=== PATIENT | male | born 1955 | race Caucasian/White ===

== ENCOUNTER 2017-06-15 19:42 | Emergency (ER) | payer MEDICARE, MEDICAID ==
[~2017-06-15] VITALS: Ht 5787.1 cm; Wt 65.9 kg
[2017-06-15] MEDS ORDERED: normal saline 1000ML IV soln IV ONE (20:25)
[2017-06-15] MEDS ORDERED: azithromycin 250mg tablet PO ONE (20:30)
[2017-06-15] MEDS ORDERED: albuterol 2.5 MG/3 ML nebule CONTNEB PRN ×2 (20:30→20:55)
[2017-06-15] MEDS ORDERED: CefTRIAXone/D5W-Rocephin 1gm 50 ML IV ONE (20:30)
[2017-06-15] MEDS ORDERED: methylPREDNISolone sod succ 125mg/2ml vial IV ONE (20:30)
[2017-06-15 21:08] LABS: BASOPHILS % (AUTO) 0.1 % (0-1); EOSINOPHILS # (AUTO) 0.3 X10'3 (0-0.9); EOSINOPHILS % (AUTO) 3.4 % (0-6); HEMATOCRIT 40.2 % (42.0-52.0); LYMPHOCYTES # (AUTO) 1.5 X10'3 (1.1-4.8); LYMPHOCYTES % (AUTO) 18.2 % (21-51); MEAN CORPUSCULAR HEMOGLOBIN 32.8 PG (27.0-31.0); MEAN CORPUSCULAR HGB CONC 34.8 % (33.0-36.5); MEAN CORPUSCULAR VOLUME 94.2 FL (78-98); MEAN PLATELET VOLUME 7.2 FL (7.4-10.4); MONOCYTES # (AUTO) 0.8 X10'3 (0-0.9); MONOCYTES % (AUTO) 9.5 % (2-12); NEUTROPHILS # (AUTO) 5.6 X10'3 (1.8-7.7); NEUTROPHILS % (AUTO) 68.8 % (42-75); PLATELET COUNT 284 X10'3 (140-440); RED BLOOD COUNT 4.27 X10'6 (4.70-6.10); RED CELL DISTRIBUTION WIDTH 13.7 % (11.5-14.5); WHITE BLOOD COUNT 8.2 X10'3 (4.5-11.0)
[2017-06-15 21:18] LABS: PARTIAL THROMBOPLASTIN TIME 29 SECONDS (22-32); PROTHROMBIN TIME 10.5 SECONDS (9.0-12.0)
[2017-06-15 21:24] LABS: ALANINE AMINOTRANSFERASE 15 U/L (12-78); ALBUMIN 3.3 G/DL (3.4-5.0); ALBUMIN/GLOBULIN RATIO 0.9 (1.1-1.5); ALKALINE PHOSPHATASE 72 IU/L (46-116); ANION GAP 11 (8-16); ASPARTATE AMINO TRANSFERASE 16 U/L (10-37); BILIRUBIN,TOTAL 1.2 MG/DL (0.1-1.0); BLOOD UREA NITROGEN 9 MG/DL (7-18); CALCIUM 8.7 MG/DL (8.5-10.1); CHLORIDE 105 MMOL/L (99-107); GLUCOSE 87 MG/DL (70-104); MAGNESIUM 1.9 MG/DL (1.5-2.4); SODIUM 141 MMOL/L (135-145); TOTAL CARBON DIOXIDE 25.5 MMOL/L (24-32); TOTAL PROTEIN 6.9 G/DL (6.4-8.2); eGFR 76 ML/MIN
[2017-06-15 21:35] VITALS: BP 119/71
[2017-06-15] MEDS ORDERED: triamcinolone acetonide 40mg/ml inj IM ONE (22:05)
[2017-06-15] MEDS ORDERED: AZIT200S47 PO (22:09)
[2017-06-15] MEDS ORDERED: PRED20TA PO (22:09)
[2017-06-15] MEDS ORDERED: ALBU8.5H8 INH (22:09)
[2017-06-15] MEDS ORDERED: FLUT1DIS7 INH (22:09)
[2017-06-15] MEDS ORDERED: GUAI120L55 PO (22:09)
[2017-06-15] MEDS ORDERED: AZIT-63 PO (22:11)
== END 2017-06-15 22:26 | disposition home or self-care (01) ==
LOC: ER 19:43
DX: J45.901 Unspecified asthma with (acute) exacerbation (principal); Z79.899 Other long term (current) drug therapy
CPT/HCPCS: 36415; 71045; 80053; 83605; 83735; 84145; 85025; 85610; 85730; 87040; 93005; 94644; 94760; 96365; 96372; 96375; 99285; J0696; J2930; J3301; J7030; 94640